=== PATIENT | male | born 1965 | race Caucasian/White ===

== ENCOUNTER 2017-07-09 06:34 | Day surgery (SDC) | payer BC ==
[~2017-07-09 06:34] MED LIST: Sodium Chloride 0.9% 10 ML Syringe FLUSH PRN; Sodium Chloride 0.9% 2.5 ML Syringe FLUSH PRN
[2017-07-09] MEDS ORDERED: Lactated Ringers 1,000 ML IV SCH (07:00)
[2017-07-09] MEDS ORDERED: ceFAZolin 2 GM in Premix Bag 1 BAG IV ONE (07:00)
[2017-07-09] MEDS ORDERED: Propofol 200 MG/20 ML SDV ONE (07:01)
[2017-07-09] MEDS ORDERED: Ondansetron 4 MG/2 ML SDV ONE (07:02)
[2017-07-09] MEDS ORDERED: fentaNYL 100 MCG/2 ML SDV ONE ×2 (07:02→09:17)
[2017-07-09] MEDS ORDERED: Rocuronium 10 MG/ML 10 ML Syringe ONE (07:02)
[2017-07-09] MEDS ORDERED: Midazolam 1 MG/ML 2 ML SDV ONE (07:02)
[2017-07-09] MEDS ORDERED: Succinylcholine/Normal Saline 200 MG/10 ML Syringe ONE (07:02)
[2017-07-09] MEDS ORDERED: Dexamethasone 4 MG/ML 5 ML MDV ONE (07:02)
--- NOTE | 2017-07-09 07:16 | PCM.PREANE ---
Preanesthetic Assessment - Anesthesia/Transfusion/Family Hx Anesthesia History: Prior Anesthesia Without Reaction Family History of Anesthesia Reaction: No Transfusion History: No Prior Transfusion(s) Intubation History: Unknown - Review of Systems General: No Symptoms Pulmonary: No Symptoms Cardiovascular: No Symptoms Gastrointestinal: No Symptoms Neurological: No Symptoms Other: Reports: None - Physical Assessment Height: 1.78 m Weight: 108.862 kg ASA Class: 3 Mental Status: Alert & Oriented x3 Airway Class: Mallampati = 2 Dentition: Reports: Bridge (upper front) Thyro-Mental Finger Breadths: 2 Mouth Opening Finger Breadths: 2 ROM/Head Extension: Full Lungs: Clear to Auscultation, Normal Respiratory Effort Cardiovascular: Regular Rate, Regular Rhythm - Lab Values: Laboratory Last Values POC Glucose 145 mg/dL (60-110) H 07/09/17 07:01 - Allergies Allergies/Adverse Reactions: Allergies Allergy/AdvReac Type Severity Reaction Status Date / Time nicotine Allergy Weakness Verified 07/08/17 15:25 - Blood Blood Available: No - Anesthesia Plan Pre-Op Medication Ordered: None - Acknowledgements Anesthesia Type Planned: General Anesthesia Pt an Appropriate Candidate for the Planned Anesthesia: Yes Alternatives and Risks of Anesthesia Discussed w Pt/Guardian: Yes Pt/Guardian Understands and Agrees with Anesthesia Plan: Yes PreAnesthesia Questionnaire HEENT History: Reports: Other (See Below) Other HEENT History: wears glasses, top bridge Cardiovascular History: Reports: High Cholesterol, Hypertension Gastrointestinal History: Reports: GERD Genitourinary History: Reports: Other (See Below) Other Genitourinary History: presently has left kidney stone Neurological History: Reports: Concussion Endocrine/Metabolic History: Reports: Diabetes, Type II (glucose 145 this AM, A1C 7.9 per patient), Obesity/BMI 30+ Dermatologic History: Reports: Psoriasis - Past Surgical History Head Surgeries/Procedures: Reports: None GI Surgical History: Reports: Hernia, Inguinal (right x2 in his 20's) Other GI Surgeries/Procedures: rt inguinal hernia repair x2 - SUBSTANCE USE Smoking Status *Q: Never Smoker Recreational Drug Use History: No - HOME MEDS Home Medications: Home Meds Adalimumab [Humira Pen Crohn-Uc-Hs Starter] 1 injection SUBCUT ASDIRECTED [History] Fenofibrate Nanocrystallized [Fenofibrate] 145 mg PO DAILY 07/08/17 [History] Simvastatin [Zocor] 40 mg PO BEDTIME 07/08/17 [History] Testosterone Cypionate [Depo-Testosterone] 1 injection IM WEEKLY 07/08/17 [ History] Valsartan 160 mg PO DAILY 07/08/17 [History] glipiZIDE/Metformin HCl [GlipiZIDE-Metformin 2.5-500 MG] 2 tab PO BID 07/08/17 [ History] - CURRENT (IN HOUSE) MEDS Current Meds: Current Medications Cefazolin Sodium/Dextrose 2 gm (/ Premix) 50 mls @ 100 mls/hr IV ONCALL ONE Stop: 07/09/17 07:29 Lactated Ringer's (Ringers, Lactated) 1,000 mls @ 150 mls/hr IV ASDIRECTED [facility] Last Admin: 07/09/17 07:01 Dose: 150 mls/hr Sodium Chloride (Saline Flush) 10 ml FLUSH ASDIRECTED PRN PRN Reason: Keep Vein Open Sodium Chloride (Saline Flush) 2.5 ml FLUSH ASDIRECTED PRN PRN Reason: Keep Vein Open Discontinued Medications Dexamethasone (Dexamethasone) Confirm Administered Dose 20 mg .ROUTE .STK-MED ONE Stop: 07/09/17 07:03 Fentanyl (Sublimaze) Confirm Administered Dose 100 mcg .ROUTE .STK-MED ONE Stop: 07/09/17 07:03 Lidocaine HCl (Xylocaine-Mpf 1%) Confirm Administered Dose 5 ml .ROUTE .STK-MED ONE Stop: 07/09/17 07:03 Midazolam HCl (Versed 1 Mg/Ml) Confirm Administered Dose 2 mg .ROUTE .STK-MED ONE Stop: 07/09/17 07:03 Ondansetron HCl (Zofran) Confirm Administered Dose 4 mg .ROUTE .STK-MED ONE Stop: 07/09/17 07:03 Propofol (Diprivan 20 Ml) Confirm Administered Dose 200 mg .ROUTE .STK-MED ONE Stop: 07/09/17 07:02 Rocuronium Briscoe (Zemuron) Confirm Administered Dose 100 mg .ROUTE .STK-MED ONE Stop: 07/09/17 07:03 Succinylcholine Chloride (Succinylcholine In Ns Pf) Confirm Administered Dose 200 mg .ROUTE .STK-MED ONE Stop: 07/09/17 07:03
[2017-07-09] MEDS ORDERED: Iopamidol 408 MG/ML 50 ML SDV ONE (07:26)
[2017-07-09] MEDS ORDERED: ePHEDrine 50 MG/ML SDV ONE (08:32)
[2017-07-09] MEDS ORDERED: fentaNYL 100 MCG/2 ML SDV IVPUSH PRN (08:50)
--- NOTE | 2017-07-09 10:03 | PCM.POSTAN ---
POST ANESTHESIA ASSESSMENT - MENTAL STATUS Mental Status: Alert, Oriented - RESPIRATORY Respiratory Status: Respiratory Rate WNL, Airway Patent, O2 Saturation Stable - CARDIOVASCULAR CV Status: Pulse Rate WNL, Blood Pressure Stable - GASTROINTESTINAL GI Status: No Symptoms - POST OP HYDRATION Hydration Status: Adequate & Stable
--- NOTE | 2017-07-09 10:10 | OR ---
SURGEON: Vamsi Webb M.D. DATE OF PROCEDURE: 07/09/2017 PREOPERATIVE DIAGNOSIS: Left upper ureteral stone, 7 mm. POSTOPERATIVE DIAGNOSIS: Left upper ureteral stone, 7 mm. OPERATION: Extracorporeal shockwave lithotripsy. DESCRIPTION OF OPERATION: The patient was given general anesthesia, placed in the supine position. Position of the patient was adjusted, so the stone could be treated. The stone was easily visualized. Stone received a total of 2400 shocks; however, throughout the procedure the stone density in shape did not change, so we stopped the 2400 shocks. The patient was then placed in a dorsal lithotomy position. He was prepped and draped in sterile drapes. Cystourethroscopy was done that was normal. A Glidewire was advanced in the left ureter all the way up into the renal pelvis alongside the stone. Then a 6-Ukrainian 26 cm was placed over the guidewire into the renal pelvis. By then, the stone was pushed back up into the renal pelvis. The position of the stent was confirmed by fluoroscopy. The bladder was emptied and the patient was moved to recovery room in good condition. PLAN: I will see him again in 2 weeks to set up a ureteroscopy and laser lithotripsy. MARVIN / FATOU /[id number]
--- NOTE | 2017-07-09 10:32 | PCM.POSTAN ---
POST ANESTHESIA ASSESSMENT - MENTAL STATUS Mental Status: Oriented - RESPIRATORY Respiratory Status: Respiratory Rate WNL, Airway Patent, O2 Saturation Stable - CARDIOVASCULAR CV Status: Pulse Rate WNL, Blood Pressure Stable - GASTROINTESTINAL GI Status: No Symptoms - POST OP HYDRATION Hydration Status: Adequate & Stable
[2017-07-09 12:54] VITALS: BP 131/75
== END 2017-07-09 12:20 | disposition home or self-care (01) ==
LOC: MW.SDS 06:34
PROVIDERS: ATTEND Urology
DX: N20.1 Calculus of ureter (principal); E29.1 Testicular hypofunction; I10 Essential (primary) hypertension; E11.9 Type 2 diabetes mellitus without complications; E66.9 Obesity, unspecified; Z87.442 Personal history of urinary calculi; Z91.048 Other nonmedicinal substance allergy status; Z79.4 Long term (current) use of insulin; Z79.899 Other long term (current) drug therapy; Z98.890 Other specified postprocedural states; Z68.35 Body mass index [BMI] 35.0-35.9, adult
CPT/HCPCS: 50590; 52332; 82962; C1769; C1874; J1100; J2250; J2405; J3010; J7120; 00873; J2704; Q9966

== ENCOUNTER 2017-07-28 12:02 | Day surgery (SDC) | payer BC ==
[~2017-07-28 12:02] MED LIST changes: +Lactated Ringers 1,000 ML IV SCH; +ceFAZolin 2 GM in Premix Bag 1 BAG IV ONE
[2017-07-28] MEDS ORDERED: Iopamidol 408 MG/ML 50 ML SDV ONE (13:27)
--- NOTE | 2017-07-28 13:57 | PCM.PREANE ---
Preanesthetic Assessment - Procedure Proposed Procedure: Stent removal and laser stone treatment/removal - Anesthesia/Transfusion/Family Hx Anesthesia History: Prior Anesthesia Without Reaction Family History of Anesthesia Reaction: No Transfusion History: No Prior Transfusion(s) Intubation History: Unknown - Review of Systems General: No Symptoms Pulmonary: No Symptoms Cardiovascular: Other (AHTN, hypercholesterolemia) Gastrointestinal: No Symptoms, Other (GERD) Neurological: No Symptoms Other: Reports: Diabetes (on glipizide-metformin, humira) - Physical Assessment NPO Status Date: 07/27/17 NPO Status Time: 20:00 O2 Sat by Pulse Oximetry: 97 Respiratory Rate: 16 Vital Signs: Last Vital Signs Temp 98.2 F 07/28/17 12:43 Pulse 68 07/28/17 12:43 Resp 16 07/28/17 12:43 BP 165/86 H 07/28/17 12:43 Pulse Ox 97 07/28/17 12:43 Height: 5 ft 10 in Weight: 235 lb ASA Class: 3 Mental Status: Alert & Oriented x3 Airway Class: Mallampati = 2 Dentition: Reports: Normal Dentition, Bridge (frontal fixed bridge.) Thyro-Mental Finger Breadths: 3 Mouth Opening Finger Breadths: 3 ROM/Head Extension: Full Lungs: Clear to Auscultation, Normal Respiratory Effort Cardiovascular: Regular Rhythm, No Murmurs, Irregular Rhythm (skipped single beats) - Allergies Allergies/Adverse Reactions: Allergies Allergy/AdvReac Type Severity Reaction Status Date / Time nicotine Allergy Weakness Verified 07/08/17 15:25 - Blood Blood Available: No Product(s) Available: None - Anesthesia Plan Pre-Op Medication Ordered: None - Acknowledgements Anesthesia Type Planned: General Anesthesia (OET) Pt an Appropriate Candidate for the Planned Anesthesia: Yes Alternatives and Risks of Anesthesia Discussed w Pt/Guardian: Yes Pt/Guardian Understands and Agrees with Anesthesia Plan: Yes PreAnesthesia Questionnaire HEENT History: Reports: Other (See Below) Other HEENT History: wears glasses, top bridge Cardiovascular History: Reports: High Cholesterol, Hypertension Gastrointestinal History: Reports: GERD Genitourinary History: Reports: Renal Calculus, Other (See Below) Other Genitourinary History: left kidney stone Neurological History: Reports: Concussion Endocrine/Metabolic History: Reports: Diabetes, Type II, Obesity/BMI 30+ Dermatologic History: Reports: Psoriasis - Past Surgical History Head Surgeries/Procedures: Reports: None GI Surgical History: Reports: Hernia, Inguinal Other GI Surgeries/Procedures: rt inguinal hernia repair x2 Male Surgical History: Reports: Ureteral Stent - SUBSTANCE USE Smoking Status *Q: Never Smoker Recreational Drug Use History: No - HOME MEDS Home Medications: Home Meds Adalimumab [Humira Pen Crohn-Uc-Hs Starter] 1 injection SUBCUT ASDIRECTED [History] Fenofibrate Nanocrystallized [Fenofibrate] 145 mg PO DAILY 07/08/17 [History] Simvastatin [Zocor] 40 mg PO BEDTIME 07/08/17 [History] Testosterone Cypionate [Depo-Testosterone] 1 injection IM WEEKLY 07/08/17 [ History] Valsartan 160 mg PO DAILY 07/08/17 [History] glipiZIDE/Metformin HCl [GlipiZIDE-Metformin 2.5-500 MG] 2 tab PO BID 07/08/17 [ History] - CURRENT (IN HOUSE) MEDS Current Meds: Current Medications Lactated Ringer's (Ringers, Lactated) 1,000 mls @ 100 mls/hr IV ASDIRECTED [facility] Last Admin: 07/28/17 12:30 Dose: 100 mls/hr Sodium Chloride (Saline Flush) 10 ml FLUSH ASDIRECTED PRN PRN Reason: Keep Vein Open Sodium Chloride (Saline Flush) 2.5 ml FLUSH ASDIRECTED PRN PRN Reason: Keep Vein Open Discontinued Medications Cefazolin Sodium/Dextrose 2 gm (/ Premix) 50 mls @ 100 mls/hr IV ONCALL ONE Stop: 07/28/17 07:29 Iopamidol (Isovue-200 (41%)) Confirm Administered Dose 50 ml .ROUTE .STK-MED ONE Stop: 07/28/17 13:28
[2017-07-28] MEDS ORDERED: Midazolam 1 MG/ML 2 ML SDV ONE (14:14)
[2017-07-28] MEDS ORDERED: Lidocaine 2% 5 ML SDV ONE (14:14)
[2017-07-28] MEDS ORDERED: Propofol 200 MG/20 ML SDV ONE ×2 (14:14→15:49)
[2017-07-28] MEDS ORDERED: fentaNYL 100 MCG/2 ML SDV ONE (14:14)
[2017-07-28] MEDS ORDERED: Ketorolac 30 MG/ML SDV ONE (14:18)
[2017-07-28] MEDS ORDERED: Neostigmine Methylsulfate 1 MG/ML 5 ML Syringe ONE (14:18)
[2017-07-28] MEDS ORDERED: Ondansetron 4 MG/2 ML SDV ONE (14:18)
[2017-07-28] MEDS ORDERED: Rocuronium 10 MG/ML 10 ML Syringe ONE (14:18)
[2017-07-28] MEDS ORDERED: Sodium Chloride 0.9% 20 ML ONE (14:44)
[2017-07-28] MEDS ORDERED: fentaNYL 100 MCG/2 ML SDV IVPUSH PRN (16:14)
--- NOTE | 2017-07-28 16:38 | PCM.POSTAN ---
POST ANESTHESIA ASSESSMENT - MENTAL STATUS Mental Status: Alert, Oriented - RESPIRATORY Respiratory Status: Respiratory Rate WNL, Airway Patent, O2 Saturation Stable - CARDIOVASCULAR CV Status: Pulse Rate WNL, Blood Pressure Stable - GASTROINTESTINAL GI Status: No Symptoms - PAIN Pain Score: 0 - POST OP HYDRATION Hydration Status: Adequate & Stable
--- NOTE | 2017-07-28 17:02 | PCM48HPAN ---
Post Anesthesia Note - EVALUATION WITHIN 48HRS OF ANESTHETIC Vital Signs in Normal Range: Yes Patient Participated in Evaluation: Yes Respiratory Function Stable: Yes Airway Patent: Yes Cardiovascular Function Stable: Yes Hydration Status Stable: Yes Pain Control Satisfactory: Yes Nausea and Vomiting Control Satisfactory: Yes Mental Status Recovered: Yes
--- NOTE | 2017-07-28 17:07 | CR ---
EXAMINATION: Ureteroscopy HISTORY: Stone COMPARISON: CT dated 07/06/2017 TECHNIQUE: 3 fluoroscopic images provided FINDINGS/IMPRESSION: Operative control films demonstrate instrumentation selected within the left ure ter with subsequent lithotripsy of the left renal stone.
[2017-07-28 17:56] VITALS: BP 132/82
--- NOTE | 2017-07-28 21:27 | OR ---
SURGEON: Vamsi Webb M.D. DATE OF PROCEDURE: 07/28/2017 PREOPERATIVE DIAGNOSIS: Residual stone in the left renal pelvis status post extracorporeal shock wave lithotripsy two weeks ago. POSTOPERATIVE DIAGNOSIS: Residual stone in the left renal pelvis status post extracorporeal shock wave lithotripsy two weeks ago. OPERATION: Ureteroscopy, renoscopy, laser lithotripsy. DESCRIPTION OF PROCEDURE: The patient was given general anesthesia, placed in the dorsal lithotomy position, prepped and draped in sterile drapes. Cystourethroscopy was done that was normal. The stent that was in the left ureter was removed. A guidewire was advanced in the left ureter over which a Storz flexible ureteroscope was advanced all the way up into the renal pelvis. The stone was visualized and broken up into a multitude of small pieces. With that done, the procedure was terminated, and the patient was moved to recovery room in good condition. I believe, the stone pieces that are left are small enough for him to be pass without a great deal of difficulty especially that he had a stent in for 2 weeks on that side. MARVIN / FATOU /[id number]
--- NOTE | 2017-12-09 11:34 | HP ---
DATE OF : 1965 PRIMARY CARE PHYSICIAN: Mary Lou IGeorge PCP ADDENDUM: This is to indicate that the history and physical was approved and reviewed on 07/28/2017. MARVIN LAINEZ /[id number]
== END 2017-07-28 17:45 | disposition home or self-care (01) ==
LOC: MW.SDS 12:02
PROVIDERS: ATTEND Urology
DX: N20.0 Calculus of kidney (principal); E29.1 Testicular hypofunction; E78.00 Pure hypercholesterolemia, unspecified; I10 Essential (primary) hypertension; K21.9 Gastro-esophageal reflux disease without esophagitis; E11.9 Type 2 diabetes mellitus without complications; E66.9 Obesity, unspecified; Z87.442 Personal history of urinary calculi; Z79.84 Long term (current) use of oral hypoglycemic drugs; Z79.899 Other long term (current) drug therapy; Z91.048 Other nonmedicinal substance allergy status; Z98.890 Other specified postprocedural states; Z68.35 Body mass index [BMI] 35.0-35.9, adult
CPT/HCPCS: 52353; 76000; C1769; J1885; J2250; J2405; J3010; J7120; 00910; 82962; J2704; Q9966